=== PATIENT | male | born 1955 | race Caucasian/White ===

== ENCOUNTER 2018-10-23 15:09 | Emergency (ER) | payer BC, OTHER ==
--- NOTE | 2018-10-23 15:24 | EDM.PDOC ---
ED HPI GENERAL MEDICAL PROBLEM - General Chief Complaint: Respiratory Problem Stated Complaint: SICK Time Seen by Provider: 10/23/18 15:24 Source of Information: Reports: Patient History Limitations: Reports: No Limitations - History of Present Illness INITIAL COMMENTS - FREE TEXT/NARRATIVE: HISTORY AND PHYSICAL: History of present illness: Patient is a 63-year-old male here with complaint of cold symptoms x 1 month. He states it was getting better for a few days but came back 3 days ago. He reports cough, congestion, right ear pain. He denies nausea, vomiting, diarrhea , abdominal pain, sore throat, chest pain, SOB. Past medical history significant for hypertension and type 2 diabetes. He denies smoking history. He has a follow up with Dr. Ramon this Wednesday. Review of systems: As per history of present illness and below otherwise all systems reviewed and negative. Past medical history: As per history of present illness and as reviewed below otherwise noncontributory. Surgical history: As per history of present illness and as reviewed below otherwise noncontributory. Social history: No reported history of drug or alcohol abuse. Family history: As per history of present illness and as reviewed below otherwise noncontributory. Physical exam: General: Patient sitting comfortably in no acute distress and nontoxic appearing HEENT: Atraumatic, normocephalic, pupils reactive, negative for conjunctival pallor or scleral icterus, mucous membranes moist, throat clear, neck supple, nontender, trachea midline. No meningeal signs. Lungs: Clear to auscultation, breath sounds equal bilaterally, chest nontender. Heart: S1S2, regular, negative for clicks, rubs, or overt murmur. Abdomen: Soft, nondistended, nontender. Negative for masses or hepatosplenomegaly. Negative for costovertebral tenderness. Pelvis: Stable nontender. Genitourinary: Deferred. Rectal: Deferred. Extremities: Atraumatic, negative for cords or calf pain. Neurovascular unremarkable. Neuro: Awake, alert, oriented. Cranial nerves II through XII unremarkable. Cerebellum unremarkable. Motor and sensory unremarkable throughout. Exam nonfocal. Notes: Diagnostics: CBC, CMP, CXR, influenza Therapeutics: None Prescriptions: Ventolin inhaler Azithromycin Impression: Acute bronchitis Plan: 1. Take medications as instructed 2. Follow up with primary care provider 3. Return to ED as needed as discussed Definitive disposition and diagnosis as appropriate pending reevaluation and review of above. - Related Data Allergies Allergy/AdvReac Type Severity Reaction Status Date / Time No Known Allergies Allergy Verified 10/23/18 15:27 Home Meds: Home Meds Albuterol [Ventolin HFA] 1 puff INH Q4H #1 inhaler 10/23/18 [Rx] Azithromycin [Zithromax] 250 mg PO ASDIRECTED #1 dosepk 10/23/18 [Rx] Gemfibrozil 1 tab PO DAILY 10/23/18 [History] amLODIPine Besylate [Amlodipine Besylate] 10 mg PO DAILY 10/23/18 [History] glipiZIDE [Glucotrol XL] 5 mg PO DAILY 10/23/18 [History] metFORMIN [Glucophage XR] 500 mg PO BIDMEALS 10/23/18 [History] ED ROS GENERAL - Review of Systems Review Of Systems: ROS reveals no pertinent complaints other than HPI. ED EXAM, GENERAL - Physical Exam Exam: See Below (see dictation) Course - Vital Signs Last Recorded V/S: Last Vital Signs Temp 96.8 F 10/23/18 15:30 Pulse 87 10/23/18 15:30 Resp 18 10/23/18 15:30 BP 144/80 H 10/23/18 15:30 Pulse Ox 97 10/23/18 15:30 - Orders/Labs/Meds Labs: Laboratory Tests 10/23/18 10/23/18 Range/Units 15:31 15:31 WBC 8.62 (4.0-11.0) K/uL RBC 4.62 (4.50-5.90) M/uL Hgb 14.2 (13.0-17.0) g/dL Hct 39.3 (38.0-50.0) % MCV 85.1 (80.0-98.0) fL MCH 30.7 (27.0-32.0) pg MCHC 36.1 (31.0-37.0) g/dL RDW Std Deviation 40.8 (28.0-62.0) fl RDW Coeff of Galindo 13 (11.0-15.0) % Plt Count 316 (150-400) K/uL MPV 10.80 (7.40-12.00) fL Neut % (Auto) 78.1 (48.0-80.0) % Lymph % (Auto) 14.8 L (16.0-40.0) % Heard % (Auto) 4.9 (0.0-15.0) % Eos % (Auto) 1.9 (0.0-7.0) % Baso % (Auto) 0.3 (0.0-1.5) % Neut # (Auto) 6.7 H (1.4-5.7) K/uL Lymph # (Auto) 1.3 (0.6-2.4) K/uL Heard # (Auto) 0.4 (0.0-0.8) K/uL Eos # (Auto) 0.2 (0.0-0.7) K/uL Baso # (Auto) 0.0 (0.0-0.1) K/uL Nucleated RBC % 0.0 /100WBC Nucleated RBCs # 0 K/uL Sodium 135 L (136-148) mmol/L Potassium 4.3 (3.5-5.1) mmol/L Chloride 99 (98-107) mmol/L Carbon Dioxide 23.5 (21.0-32.0) mmol/L BUN 23 H (7.0-18.0) mg/dL Creatinine 1.0 (0.8-1.3) mg/dL Est Cr Clr Drug Dosing 67.48 mL/min Estimated GFR (MDRD) > 60.0 ml/min Glucose 216 H (74-106) mg/dL Calcium 10.0 (8.5-10.1) mg/dL Total Bilirubin 0.4 (0.2-1.0) mg/dL AST 9 L (15-37) IU/L ALT 14 (14-63) IU/L Alkaline Phosphatase 139 H (46-116) U/L Total Protein 7.8 (6.4-8.2) g/dL Albumin 4.1 (3.4-5.0) g/dL Globulin 3.7 (2.6-4.0) g/dL Albumin/Globulin Ratio 1.1 (0.9-1.6) Departure - Departure Time of Disposition: 16:32 Disposition: Home, Self-Care 01 Condition: Good Clinical Impression: Bronchitis - Discharge Information Prescriptions: Albuterol [Ventolin HFA] 1 puff INH Q4H #1 inhaler Azithromycin [Zithromax] 250 mg PO ASDIRECTED #1 dosepk Referrals: Danyel Ramon MD [Primary Care Provider] - Forms: ED Department Discharge Additional Instructions: The following information is given to patients seen in the emergency department who are being discharged to home. This information is to outline your options for follow-up care. We provide all patients seen in our emergency department with a follow-up referral. The need for follow-up, as well as the timing and circumstances, are variable depending upon the specifics of your emergency department visit. If you don't have a primary care physician on staff, we will provide you with a referral. We always advise you to contact your personal physician following an emergency department visit to inform them of the circumstance of the visit and for follow-up with them and/or the need for any referrals to a consulting specialist. The emergency department will also refer you to a specialist when appropriate. This referral assures that you have the opportunity for follow-up care with a specialist. All of these measure are taken in an effort to provide you with optimal care, which includes your follow-up. Under all circumstances we always encourage you to contact your private physician who remains a resource for coordinating your care. When calling for follow-up care, please make the office aware that this follow-up is from your recent emergency room visit. If for any reason you are refused follow-up, please contact the [facility] Emergency Department at and asked to speak to the emergency department charge nurse. [address] [address] 1. Take medications as instructed 2. Follow up with primary care provider 3. Return to ED as needed as discussed
--- NOTE | 2018-10-23 16:20 | CR ---
INDICATION: Cough. TECHNIQUE: PA and lateral chest x-ray. FINDINGS: Mild soft tissue prominence in both hilar regions should be related to slight prominence of the pulmonary arteries. Heart size normal. Lungs clear without infiltrate or consolidation. Moderate degenerate changes involve AC joints. Old right lower rib fracture. Chest otherwise negative. Dictated by Anthony Sales MD @ Oct 23 2018 4:19PM Signed by Dr. Anthony Sales @ Oct 23 2018 4:20PM
[2018-10-23 16:28] LABS: CHLORIDE,CL 99 mmol/L (98-107); SODIUM,NA 135 mmol/L (136-148)
== END 2018-10-23 16:41 | disposition home or self-care (01) ==
LOC: MW.ED 15:09
DX: J20.9 Acute bronchitis, unspecified (principal); Z79.899 Other long term (current) drug therapy
CPT/HCPCS: 36415; 71046; 71046-26; 80053; 85025; 87804; 99283

== ENCOUNTER 2021-02-24 22:42 | Emergency (ER) | payer BC ==
--- NOTE | 2021-02-25 00:13 | EDM.PDOC ---
ED HPI GENERAL MEDICAL PROBLEM - General Chief Complaint: General Stated Complaint: TOOK TOO MUCH MEDICATION Time Seen by Provider: 02/24/21 22:53 - History of Present Illness INITIAL COMMENTS - FREE TEXT/NARRATIVE: CHIEF COMPLAINT(S): Accidental medication ingestion HISTORY OF PRESENT ILLNESS: This is a 65-year-old man with a past medical history of diabetes mellitus, hypertension, and reflux who comes to the emergency department with a chief complaint of accidental medication ingestion. The patient presents with his who is in presents. Patient states that he took 27 tablets of his pantoprazole. The states that the patient has his medications aligned and bottles for each day and he grabbed the wrong bottle and took all of the pantoprazole tablets. He states that there was no other medication in this bottle including Tylenol, aspirin, glipizide, metformin, or amlodipine. He currently denies any symptoms. He denies any suicidal ideation, homicidal ideation. He states that he was on pantoprazole for reflux disease however it was causing him diarrhea so he stopped approximately 1 week ago. He says he was going to follow-up with his primary care physician to discuss the side effect of this medication. REVIEW OF SYSTEMS: Constitutional: Denies fever, chills. Eyes: Denies eye pain Ears, Nose, Mouth, & Throat: Denies earache Cardiovascular: Denies chest pain Respiratory: Denies shortness of breath Gastrointestinal: Denies Nausea, vomiting, diarrhea, hematochezia. Genitourinary: Denies hematuria Skin:Denies a rash MSK: Denies joint pain Neurological: Denies blurred vision Psychiatric: Denies depression, suicidal ideation, homicidal ideation PAST MEDICAL HISTORY: As per history of present illness and as reviewed below otherwise noncontributory. SURGICAL HISTORY: As per history of present illness and as reviewed below otherwise noncontributory SOCIAL HISTORY: As per history of present illness and as reviewed below otherwise noncontributory. FAMILY HISTORY: As per history of present illness and as reviewed below otherwise noncontributory. EXAMINATION OF ORGAN SYSTEMS/BODY AREAS: Constitutional: Blood pressure is 151/83, heart rate 77, respiratory rate 18 with an oxygen saturation 97% on room air. Temperature 36.2 General: Overall well-appearing man who is in no acute distress Psychiatric: Appropriate mood and affect. Eyes: No scleral icterus or conjunctival erythema pupils are 3 mm and reactive bilaterally. Extraocular movements intact. ENMT: Moist mucous membranes. No pharyngeal erythema Cardiovascular: Regular, rate, and rhythm. No gallops, murmurs, or rubs. Bilateral upper extremity pulses symmetric and intact. No peripheral edema. No JVD. Respiratory: Lungs clear to auscultation bilaterally. No wheezes, rales, or rhonchi. Gastrointestinal: Soft, non-tender, non-distended. Normoactive bowel sounds Genitourinary: No suprapubic tenderness Musculoskeletal: Normal range of motion. Skin: No lesions or abrasions. Warm and dry. Neurological: Alert, GCS 15 strength and sensation grossly intact in upper and lower extremities bilaterally MEDICAL DECISION MAKING AND COURSE IN THE ED WITH INTERPRETATION/REVIEW OF DIAGNOSTIC STUDIES: This is a 65-year-old and with a past medical history of diabetes mellitus, reflux disease and hypertension who comes to the emergency department with accidental ingestion of 27 tablets of Protonix who is currently asymptomatic. We did contact poison control and they stated that there is no further work-up indicated. They recommended obtaining a Tylenol level. At this time I do not believe the patient requires a Tylenol level as the patient has brought the bottle in with him, both patient and state that there was no Tylenol in this bottle. At this time I will observe the patient in the emergenc y department for p.o. toleration as this amount of tablets could form a bezoar. The patient was amenable to this plan. I do not believe any further work-up is indicated. Patient was observed in the emergency department patient was able to tolerate p.o. without any vomiting. I did discuss with the patient that if he were to have any vomiting, inability to tolerate p.o. or abdominal pain he should return to the emergency department. He was given strict return precautions and had no further questions. They were amenable to discharge at this time and had no further questions DISPOSITION: The patient was discharged home in stable condition. The patient will follow up with primary care physician in 2 to 3 days CONDITION: Fair PROCEDURES: None FINAL IMPRESSION(S)/DIAGNOSES: 1. Acute accidental ingestion of medication Felipe Mott M.D. - Related Data Allergies Allergy/AdvReac Type Severity Reaction Status Date / Time No Known Allergies Allergy Verified 02/24/21 22:47 Home Meds: Home Meds Albuterol [Ventolin HFA] 1 puff INH Q4H #1 inhaler 10/23/18 [Rx] amLODIPine Besylate [Amlodipine Besylate] 10 mg PO DAILY 10/23/18 [History] gemfibroziL [Gemfibrozil] 1 tab PO DAILY 10/23/18 [History] glipiZIDE [Glucotrol XL] 5 mg PO DAILY 10/23/18 [History] metFORMIN [Glucophage XR] 500 mg PO BIDMEALS 10/23/18 [History] Pantoprazole [ProTONIX] 40 mg PO DAILY 02/24/21 [History] Past Medical History HEENT History: Reports: None Cardiovascular History: Reports: None Respiratory History: Reports: Pneumonia, Recurrent Gastrointestinal History: Reports: None Genitourinary History: Reports: None Musculoskeletal History: Reports: None Neurological History: Reports: None Psychiatric History: Reports: None Endocrine/Metabolic History: Reports: Diabetes, Type I Insulin Pump Model and [employer]: None Hematologic History: Reports: None Immunologic History: Reports: None Oncologic (Cancer) History: Reports: None Dermatologic History: Reports: None - Infectious Disease History Infectious Disease History: Reports: None - Past Surgical History Head Surgeries/Procedures: Reports: None GI Surgical History: Reports: Appendectomy, Cholecystectomy Social & Family History - Family History Family Medical History: No Pertinent Family History - Caffeine Use Caffeine Use: Reports: Soda - Recreational Drug Use Recreational Drug Use: No ED ROS GENERAL - Review of Systems Review Of Systems: See Below ED EXAM, GENERAL - Physical Exam Exam: See Below Course - Vital Signs Last Recorded V/S: Last Vital Signs Temp 36.2 C 02/24/21 22:45 Pulse 74 02/24/21 23:50 Resp 16 02/24/21 23:50 BP 151/83 H 02/24/21 23:50 Pulse Ox 95 02/24/21 23:50 Departure - Departure Time of Disposition: 00:12 Disposition: Home, Self-Care 01 Condition: Fair Clinical Impression: Accidental drug ingestion - Discharge Information *PRESCRIPTION DRUG MONITORING PROGRAM REVIEWED*: No *COPY OF PRESCRIPTION DRUG MONITORING REPORT IN PATIENT LADI: No Instructions: Accidental Drug Poisoning, Adult Referrals: Danyel Ramon MD [Primary Care Provider] - Forms: ED Department Discharge Additional Instructions: Mr. Whyte you were evaluated today on an emergent basis. At this time given that she took 27 tablets of pantoprazole we did contact poison control. This medication is nontoxic even at 27 tablets. It may cause nausea and vomiting. The important thing is to maintain hydration. You can do this with Gatorade, Pedialyte or fluids. This will help you metabolize the pantoprazole. You did state that she did not take any Tylenol therefore we did not obtain a Tylenol level. In addition given that she stated that pantoprazole was causing diarrhea and that you stopped it 1 week ago if you have diarrhea and feel dehydrated you are welcome to return to the emergency department. In addition I did discuss with you that given it is 27 tablets there is a possibility that all of this tablets can combined together and cause an obstruction. If you are unable to tolerate fluids or food I would like you to return to the emergency department. Otherwise please follow-up with your primary care physician for medication management. [facility] [address] [place] [address] [place] [address] The patient is informed of any results of their evaluation and diagnostic workup and all questions are answered. They are given discharge instructions and return precautions. The patient is stable for discharge. The patient states they understand and agree with the plan and that they will return if their symptoms get worse or if they have any new concerns. The following information is given to patients seen in the emergency department who are being discharged to home. This information is to outline your options for follow-up care. We provide all patients seen in our emergency department with a follow-up referral. The need for follow-up, as well as the timing and circumstances, are variable depending upon the specifics of your emergency department visit. If you don't have a primary care physician on staff, we will provide you with a referral. We always advise you to contact your personal physician following an emergency department visit to inform them of the circumstance of the visit and for follow-up with them and/or the need for any referrals to a consulting specialist. The emergency department will also refer you to a specialist when appropriate. This referral assures that you have the opportunity for follow-up care with a specialist. All of these measure are taken in an effort to provide you with optimal care, which includes your follow-up. Under all circumstances we always encourage you to contact your private physician who remains a resource for coordinating your care. When calling for follow-up care, please make the office aware that this follow-up is from your recent emergency room visit. If for any reason you are refused follow-up, please contact the [facility] Emergency Department at and asked to speak to the emergency department charge nurse. Sepsis Event Note (ED) - Evaluation Sepsis Screening Result: No Definite Risk - Focused Exam Vital Signs: Vital Signs Temp Pulse Resp BP Pulse Ox 02/24/21 23:50 74 16 151/83 H 95 02/24/21 22:45 36.2 C 77 18 151/83 H 97
== END 2021-02-25 00:23 | disposition home or self-care (01) ==
LOC: MW.ED 22:42
DX: T47.1X1A Poisoning by other antacids and anti-gastric-secretion drugs, accidental (unintentional), initial encounter (principal); E11.9 Type 2 diabetes mellitus without complications; K21.9 Gastro-esophageal reflux disease without esophagitis; I10 Essential (primary) hypertension; Z79.899 Other long term (current) drug therapy
CPT/HCPCS: 99283

== ENCOUNTER 2021-03-12 08:54 | Emergency (ER) | payer OTHER, BC ==
--- NOTE | 2021-03-12 09:12 | EDM.PDOC ---
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 Ever since a direct trauma he has pain in the low back just above the sacrum. The pain severe with movement and touch but not as bad when he is resting. There is no radicular pain and no neurologic deficit. History of present illness: [] Review of systems: As per history of present illness and below otherwise all systems reviewed and negative. Past medical history: As per history of present illness and as reviewed below otherwise noncontributory. Surgical history: As per history of present illness and as reviewed below otherwise noncon tributory. Social history: No reported history of drug or alcohol abuse. Family history: As per history of present illness and as reviewed below otherwise noncontributory. Physical exam: Constitutional - well developed, well-nourished and in no acute distress HEENT - normocephalic, no evidence of trauma - external nose and mouth normal - no mass in neck and no JVD - mucosae moist EYES - full EOM, PERRL, no icterus - no evidence of inflammation, injection, or drainage Respiratory - no respiratory distress, equal bilateral expansion, lungs clear to auscultation and no abnormal lung sounds Cardiovascular - Regular Rhythm with S1 and S2 appreciated and no murmur, gallop or rub. GI - abdomen soft without distension or organomegaly - normal bowel sounds - no guard or rebound Musculoskeletal there is tenderness and swelling in the superiormost midline just above the sacrum. Otherwise no gross deformity of long bones or joints - no tenderness, swelling or edema. Straight leg raise negative for crossover or lumbar pain. Pain is localized at the area where the swelling and tenderness is noted above. Neurologic - Alert and oriented times four - CN II-XII grossly intact - motor s ensory and coordination symmetrically normal Psychiatric - appropriate mood and affect with normal thought content Hematologic - No petechiae or purpura - mucosa appropriate color and sclera not pale - normal nail bed color and refill Integument - no rash or evidence of trauma - normal turgor Diagnostics: [] Therapeutics: [] Impression: [] Plan: [] Definitive disposition and diagnosis as appropriate pending reevaluation and review of above. tailbone Pain Score (Numeric/FACES): 6 - Related Data Allergies Allergy/AdvReac Type Severity Reaction Status Date / Time No Known Allergies Allergy Verified 03/12/21 09:06 Home Meds: Home Meds Albuterol [Ventolin HFA] 1 puff INH Q4H #1 inhaler 10/23/18 [Rx] amLODIPine Besylate [Amlodipine Besylate] 10 mg PO DAILY 10/23/18 [History] gemfibroziL [Gemfibrozil] 1 tab PO DAILY 10/23/18 [History] glipiZIDE [Glucotrol XL] 5 mg PO DAILY 10/23/18 [History] metFORMIN [Glucophage XR] 500 mg PO BIDMEALS 10/23/18 [History] Pantoprazole [ProTONIX] 40 mg PO DAILY 02/24/21 [History] Past Medical History HEENT History: Reports: None Cardiovascular History: Reports: None Respiratory History: Reports: Pneumonia, Recurrent Gastrointestinal History: Reports: None Genitourinary History: Reports: None Musculoskeletal History: Reports: None Neurological History: Reports: None Psychiatric History: Reports: None Endocrine/Metabolic History: Reports: Diabetes, Type I Insulin Pump Model and Manager Target: None Hematologic History: Reports: None Immunologic History: Reports: None Oncologic (Cancer) History: Reports: None Dermatologic History: Reports: None - Infectious Disease History Infectious Disease History: Reports: None - Past Surgical History Head Surgeries/Procedures: Reports: None GI Surgical History: Reports: Appendectomy, Cholecystectomy Social & Family History - Family History Family Medical History: No Pertinent Family History - Tobacco Use Tobacco Use Status *Q: Never Tobacco User - Caffeine Use Caffeine Use: Reports: Soda ED ROS GENERAL - Review of Systems Review Of Systems: Comprehensive ROS is negative, except as noted in HPI. ED EXAM, GENERAL - Physical Exam Exam: See Below Free Text/Narrative:: My physical exam is in the HPI Course - Vital Signs Text/Narrative:: 10:39 AM patient feels better. X-ray has a small spur that appears to be from the upper anterior lip of L5 but this appears old. I am awaiting x-ray read but the patient will be discharged and I will call him back there is any discrepancy. Last Recorded V/S: Last Vital Signs Temp 35.7 C L 03/12/21 09:04 Pulse 78 03/12/21 09:04 Resp 16 03/12/21 09:04 BP 146/75 H 03/12/21 09:04 Pulse Ox 95 03/12/21 09:04 - Orders/Labs/Meds Orders: Active Orders 24 hr Category Date Time Status Pelvis 1V or 2V [CR] Stat Exams 03/12/21 09:53 Taken Meds: Medications Discontinued Medications Generic Name Dose Route Start Last Admin Trade Name Kiet PRN Reason Stop Dose Admin Ketorolac Tromethamine 30 mg 03/12/21 09:22 03/12/21 09:44 Ketorolac 30 Mg/Ml Sdv IM 03/12/21 09:23 30 mg ONETIME ONE Administration Departure - Departure Time of Disposition: 10:40 Disposition: Home, Self-Care 01 Condition: Good Clinical Impression: Contusion, back - Discharge Information Instructions: Contusion, [id number] Referrals: Danyel Ramon MD [Primary Care Provider] - Forms: ED Department Discharge Additional Instructions: If you develop any back pain with loss of feeling in your buttocks or legs or loss of movement or strength or loss of bowel or bladder control then you must return immediately. This is an emergency. NSAIDs for pain I recommended an ice to the area. [facility] - Primary [facility] [address] [place] [address] [place] [address] The following information is given to patients seen in the emergency department who are being discharged to home. This information is to outline your options for follow-up care. We provide all patients seen in our emergency department with a follow-up referral. The need for follow-up, as well as the timing and circumstances, are variable depending upon the specifics of your emergency department visit. If you don't have a primary care physician on staff, we will provide you with a referral. We always advise you to contact your personal physician following an emergency department visit to inform them of the circumstance of the visit and for follow-up with them and/or the need for any referrals to a consulting specialist. The emergency department will also refer you to a specialist when appropriate. This referral assures that you have the opportunity for follow-up care with a specialist. All of these measure are taken in an effort to provide you with opt imal care, which includes your follow-up. Under all circumstances we always encourage you to contact your private physician who remains a resource for coordinating your care. When calling for follow-up care, please make the office aware that this follow-up is from your recent emergency room visit. If for any reason you are refused follow-up, please contact the [facility] Emergency Department at and asked to speak to the emergency department charge nurse. Sepsis Event Note (ED) - Evaluation Sepsis Screening Result: No Definite Risk - Focused Exam Vital Signs: Vital Signs Temp Pulse Resp BP Pulse Ox 03/12/21 09:04 35.7 C L 78 16 146/75 H 95 - My Orders Last 24 Hours: My Active Orders 03/12/21 09:53 Pelvis 1V or 2V [CR] Stat - Assessment/Plan Last 24 Hours: My Active Orders 03/12/21 09:53 Pelvis 1V or 2V [CR] Stat
[2021-03-12] MEDS ORDERED: Ketorolac 30 MG/ML SDV IM ONE (09:22)
--- NOTE | 2021-03-12 10:38 | CR ---
Indication: Injury Comparison: None available. Technique: AP and lateral views lumbar spine were obtained Findings: The lumbar vertebral body heights are grossly maintained with mild straightening of the normal lumbar lordosis. There is trace anterolisthesis of L4 on L5. There is mild to moderate multilevel degenerative disc disease. There is mild to moderate stool seen throughout the colon. Impression: Moderate degenerative changes of the lumbar spine without acute osseous abnormality. Dictated by Tomas Celaya MD @ 03/12/2021 10:37:[address] Tomas Celaya @ Mar 12 2021 10:37AM
--- NOTE | 2021-03-12 10:42 | CR ---
INDICATION: Injury TECHNIQUE: Single view pelvis COMPARISONS: None available. FINDINGS: Femoral heads are well-seated in the acetabula. There is no displaced fracture, dislocation or acute osseous abnormality. There is mild axial loss of joint space with marginal osteophyte formation and subchondral sclerosis. The soft tissues are unremarkable. IMPRESSION: Mild degenerative changes of the bilateral hips without acute osseous abnormality. Dictated by Tomas Celaya MD @ 03/12/2021 10:40:[address] Tomas Celaya @ Mar 12 2021 10:40AM
== END 2021-03-12 10:53 | disposition home or self-care (01) ==
LOC: MW.ED 08:54
DX: S30.0XXA Contusion of lower back and pelvis, initial encounter (principal); E10.9 Type 1 diabetes mellitus without complications; Z79.84 Long term (current) use of oral hypoglycemic drugs; W22.8XXA Striking against or struck by other objects, initial encounter
CPT/HCPCS: 72100; 72170; 96372; 99283; J1885